=== PATIENT | male | born 1950 | race Caucasian/White ===

== ENCOUNTER 2022-03-21 11:37 | Outpatient (CLI) | payer MEDICARE, OTHER, SELFPAY | END 2022-03-21 11:38 | disposition home or self-care (01) | PROVIDERS: PCP Physician Assistant; Visit Provider Orthopaedic Surgery | DX: Z01.818 Encounter for other preprocedural examination (principal) | CPT/HCPCS: 36415; 86850; 86900; 86901 ==

== ENCOUNTER 2022-03-23 08:06 | Day surgery (SDC) | payer MEDICARE, OTHER, SELFPAY ==
[2022-03-23] VITALS (25 sets, daily range): BP systolic 74–168; BP diastolic 39–91; PULSE 53–108; RESP 12–20; TEMP 36.4–37.2; O2SAT 92–97; BMI 39.0
[2022-03-23] MEDS: ACETAMINOPHEN 500 MG TABLET 1000 MG PO ×3 (08:40→22:46)
[2022-03-23] MEDS: CELECOXIB 200 MG CAPSULE PO ×2 (08:40→20:32)
[2022-03-23] MEDS: SODIUM CHLORIDE 0.9 % (FLUSH) 10 ML SYRINGE IVF (09:00)
[2022-03-23] MEDS: LACTATED RINGERS 1000 ML 1,000 ML 100 ML IV (09:00)
[2022-03-23] MEDS: MIDAZOLAM HCL 1 MG/ML inj IVP (09:22)
[2022-03-23] MEDS: fentaNYL 100 MCG/2 ML inj IVP (09:22)
--- NOTE | 2022-03-23 09:27 | W.PM.NB ---
Nerve Block Nerve Block Time Seen by Provider: 09:24 Date Seen: 03/23/22 Type of block requested by surgeon for post-operative analgesia: OFELIA/LFCN Side: right Time out performed: Yes Verification of patient name: Yes Verification of date of : Yes Site marking: site marked Name of person performing procedure: Quinn Continuous monitoring Was continuous monitoring of O2 sat, B/P, cardiac rehab nurse, recorded every 15 minutes?: Yes Procedure Checklist: sterile prep, needles and gloves Ultrasound guided. Images saved: Yes Medications given in 5ml increments after negative aspiration: Ropivicaine %: 0.5 mL: 30 Needle gauge: 20 Decadron (mg): 10 Precedex (mcg): 25 Patient tolerated procedure well: Yes Additional comments: Needle noted below psoas tendon needle noted adjacent to LFCN Block Charges Block Charge (with Pro Fee): Other Periph Nerve Block Use of Ultrasound Machine for Block: Yes- US Guidance/pain block
--- NOTE | 2022-03-23 09:33 | SUR.PREOP ---
TIME?OUT:?20 PT/RN/MDA?VERIFICATION?OF?SURGICAL?SITE,?PROCEDURE,?AND?CONSENT OBTAINED?PRIOR?TO?INVASIVE?PROCEDURE.
[2022-03-23] MEDS: CEFAZOLIN 2 GM INJ IVP (09:35)
--- NOTE | 2022-03-23 09:41 | CRLHL7_ITS ---
For Patients: As a result of the Cures Act, medical imaging exams and procedure reports are released immediately into your electronic medical record. You may view this report before your referring provider. If you have questions, please contact your health care provider. Indication: Hip replacement surgery Technique: AP hip fluoroscopic image. Fluoroscopy time 75.5 seconds. Findings/Impression: Hardware from a right total hip arthroplasty is in satisfactory position. Dictated by James Osorio MD @ 03/23/2022 11:48:07 AM (Electronically Signed)
[2022-03-23] MEDS: TRANEXAMIC ACID 100 MG/ML INJ 1000 MG IV (09:51)
--- NOTE | 2022-03-23 11:43 | CRLHL7_ITS ---
For Patients: As a result of the Cures Act, medical imaging exams and procedure reports are released immediately into your electronic medical record. You may view this report before your referring provider. If you have questions, please contact your health care provider. Indication: POST OP Technique: AP hip centered pelvis and lateral view right hip Findings/Impression: Hardware from a right total hip arthroplasty is in satisfactory position. Bone alignment is normal. No sign of acute fracture. Postop changes are within normal limits. Dictated by James Osorio MD @ 03/23/2022 3:20:10 PM (Electronically Signed)
--- NOTE | 2022-03-23 11:47 | PM.ORPRC ---
Procedure Note Date of procedure: 03/23/22 Procedure: SURGEON: Saleem Quinones MD SEAT INSTALLER: Geeta Tam PA-C , SIMON Fischer PREOPERATIVE DIAGNOSIS: Right hip osteoarthritis POSTOPERATIVE DIAGNOSIS: Right hip osteoarthritis NAME OF OPERATION: Right total hip arthroplasty IMPLANTS: 1. [employer] [place] # 56 sector ingrowth cup 2. 36 x 56 +4 neutral polyethylene 3. Actis # 5 high offset collared ingrowth stem 4. 36 + 1.5 ceramic femoral head ANESTHESIA: General ESTIMATED BLOOD LOSS: 300 cc COMPLICATIONS: None SPECIMENS: None DRAINS: None PREOPERATIVE ANTIBIOTICS: Ancef 2 grams INDICATIONS: The patient is a 71-year-old with a longstanding history of severe, unrelenting right hip pain secondary to end-stage right hip osteoarthritis. Despite appropriate nonoperative management, including activity modification, use of an assist device, anti-inflammatories, [id number] pain medication, physical therapy and injections, they continue to have pain and disability. Operative intervention was offered. The risks, benefits and expected outcomes were discussed in detail. These included but were not limited to: Infection, bleeding, injury to blood vessel or nerve, venous thromboembolism. All questions were answered to their satisfaction. Use of an sales operations assistant was necessary throughout the case for patient positioning and safety, soft tissue retraction and closure. PROCEDURE: The patient was placed supine on the [place] table. General anesthesia was administered. The sales operations assistant made sure the patient was properly positioned. The right hip was prepped and draped in the usual sterile fashion. The image intensifier was brought in for a perfect AP pelvis and a perfect double tear drop AP view of each hip which were used for intraoperative templating with our fluoroscopic guide. An oblique incision was made 3 cm distal and 3 cm lateral to the anterior superior iliac spine. The sales operations assistant retracted the soft tissues to protect them. Subcutaneous dissection was taken with electrocautery to the superficial fascia. The fascia was divided in line with the incision. Blunt dissection was carried medially to the tensor fascia jey and sartorius interval. Deep dissection was carried with electrocautery. The circumflex vessels were cauterized and divided. The capsule was exposed and then divided in a T-fashion, tagged with #1 Ethibond sutures. Retractors were placed in the joint, held by the sales operations assistant. The corkscrew was placed in the femoral head. The neck cut was made in the subcapital region. We made a second neck cut more distal. The napkin ring of bone was removed. The femoral head was removed intact. Acetabular retractors were placed, held by the sales operations assistant. The labrum was sharply debrided. The capsule was released. The 43 mm reamer was used to the true medial wall. We then enlarged in 2 mm increments using the image intensifier for our reamer placement. We impacted the cup which had excellent purchase. We placed the hole eliminator and the polyethylene. Attention was then turned to the proximal femur. The limb was placed in 140 degrees of external rotation, maximum extension and adduction. A significant amount of time was spent releasing the capsule to allow us to deliver the femur into the wound and complete the femoral side safely. Retractors were held by the sales operations assistant throughout the femoral preparation. The wash box operator and canal finder were used. Broaches were used to a stable size. The calcar reamer was used. Trial components were placed. The hip was reduced and was found to be stable with appropriate soft tissue tension. Length and offset had been nicely restored using the image intensifier and our fluoroscopic guide. Trial components were removed. The stem was impacted. We placed the femoral head. Again, the hip was reduced and was found to be stable with appropriate soft tissue tension. Length and offset had been nicely restored. The sales operations assistant did a three minute dilute Betadine solution soak. The sales operations assistant irrigated the wound with 3 liters of normal saline via pulse lavage. The sales operations assistant repaired the anterior capsule with a #1 Vicryl and our previously placed Ethibond sutures. The sales operations assistant closed the fascia over the tensor fascia jey with a #1 PDO Stratafix, subcutaneous tissues with 2-0 Vicryl, skin with a running 3-0 Stratafix and glue. A dry dressing was applied by the sales operations assistant. Sponge and needle counts were correct x 2. The patient tolerated the procedure well; there were no apparent complications. They were awakened and extubated in the operating room, sent to the Post-Anesthesia Care Unit in satisfactory condition. PLAN: 1. The patient will be mobilized with physical therapy, weight-bearing as tolerates 2. Xarelto x 5 days then aspirin x 30 days will be used for DVT prophylaxis 3. The patient will be discharged once medically appropriate
--- NOTE | 2022-03-23 12:09 | W.ANESCHARGE ---
Anesthesia Charges Start Date/Time Anesthesia Start Date: 03/23/22 Anesthesia Start Time: 09:35 Stop Date/Time Anesthesia Stop Date: 03/23/22 Anesthesia Stop Time: 12:10 Summary Emergency: No
[2022-03-23] MEDS: EPINEPHrine 1 MG/ML inj 0.5 MG IRRIGATION (12:30)
--- NOTE | 2022-03-23 12:32 | W.ANESCHARGE ---
Anesthesia Charges Start Date/Time Anesthesia Start Date: 03/23/22 Anesthesia Start Time: 09:35 Stop Date/Time Anesthesia Stop Date: 03/23/22 Anesthesia Stop Time: 12:10 Summary Emergency: No
[2022-03-23] MEDS: fentaNYL 100 MCG/2 ML inj 50 MCG IVP (12:40)
[2022-03-23] MEDS: MEPERIDINE 25 MG/ML INJ 12.5 MG IVP (12:44)
[2022-03-23] MEDS: HYDROmorphone 0.5 mg/0.5 ml inj IVP (13:16)
[2022-03-23] MEDS: LACTATED RINGERS 1000 ML 1,000 ML 75 ML IV (13:30)
[2022-03-23] MEDS: 0.9 % SODIUM CHLORIDE 500 ML IV (13:43)
[2022-03-23] MEDS: ONDANSETRON 2 MG/ML inj 4 MG IVP (15:39)
[2022-03-23] MEDS: CEFAZOLIN 2 GM in 0.9 % SODIUM CHLORIDE Mini-bag 100 ML IVPB (16:20)
--- NOTE | 2022-03-23 16:22 | PC.NURSE ---
Pt returned to floor with B/P of 88/59, repostioned, changed cuff, no positive change with B/P. Left message for Dr. Vines, started 500cc bolus. Updated Dr. Bradley. B/P slowly rising. Pt has been asymptomatic through entire event. Tolerating ice chips. Pt lives home alone with cat. He did not have a plan for DC. Friend/neighbor, Estrella, informed clinical writer that a friend and her in [place] offered to take him in for rehab. Friend, Estrella and clinical writer encoraged pt to take friends up on stay for his safety during post-op rehab. Pt has agreed to return to [facility] with friends at time of DC. Pt is needing information on PT/OT while with friends and then once he is able to return home.
[2022-03-23] MEDS: HYDROmorphone 2 MG TABLET PO (20:31)
[2022-03-23] MEDS: SENNOSIDES 1 TAB TABLET 2 TAB PO (20:31)
--- NOTE | 2022-03-23 22:38 | PC.NURSE ---
Shift note: The pt has been pleasant and cooperative. The right hip dressing has been C/D/I. The pt was denying pain at rest; C/O 6/10 pain with activity; PRN pain medication was give with some relief. Ice pack has been applied to the site. BP has been improved gradually to 125/74. Denied chest pain and short of breath. The pt was up to the chair this evening; and ambulated to the BR with 1-assist a gait belt and walker. He ate 100% of his dinner; tolerated without any nausea.
[2022-03-24] MEDS: CEFAZOLIN 2 GM in 0.9 % SODIUM CHLORIDE Mini-bag 100 ML IVPB ×2 (00:02→08:18)
[2022-03-24] MEDS: HYDROmorphone 2 MG TABLET PO ×3 (00:06→12:39)
--- NOTE | 2022-03-24 00:25 | PM.IMCN1 ---
Date of Consult Consult date: 03/24/22 Requesting Physician: Orthopedics Primary Care Provider: Ari Garcias PA-C Consult Narrative Narrative: HOSPITALIST CONSULT Hospital Day #1 Post Op Day # 0 Status post right total hip arthroplasty The hospital medicine team was asked by Orthopedic team to manage the patient's PE, hypertension I updated the [facility] histories and Medications and Allergies in the Expanse tabs REVIEW OF SYSTEMS: 12-point ROS completed with patient and negative unless otherwise stated in HPI or below. PHYSICAL EXAM: CODE STATUS: FULL CODE CONSTITUTIONAL: Conversive, good historian. A/O. Knows setting and context. VITAL SIGNS: see record. HEENT: Normocephalic, atraumatic. PERRL, EOMI, conjunctivae pink, no scleral icterus. Ears and nose externally normal. Pharynx normal. NECK: No JVD. No carotid bruit, no thyromegaly, no adenopathy. CHEST: Clear to auscultation bilaterally HEART: No harsh murmurs. S1/S2. ABDOMEN: Flat, soft, nontender. Normal bowel sounds. Moderately obese. EXTREMITIES: No edema. MUSCULOSKELETAL: Intact surgical dressing. Neurovascularly intact right lower extremity. NEURO: Cranial nerves intact. Normal affect. No gross deficits. Speech intelligible. SKIN: No rashes, petechiae, concerning changes PSYCHIATRIC: Euthymic. INVESTIGATIONS: EMR Reviewed DISPOSITION: MedSurg Recovery; Discharge tomorrow DVT: Consider Lovenox bridge until his warfarin is therapeutic. 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 Previously for 6 months many years ago. No children. Lives alone. Highest level of school completed/degree received: some college, no degree Smoking Status: Never smoker Do you use any of these nicotine containing products: None How often do you have a drink containing alcohol: monthly or less Alcohol type: wine How many standard drinks containing alcohol do you have on a typical day: 1 or 2 How often do you have six or more drinks on one occasion: Less than monthly AUDIT-C Alcohol total score: 2 Non-prescribed substance use: denies use Caffeine: Yes (coffee, once a week) service: No Meds Home Medications and Allergies Home Medications Medication Instructions Recorded Confirmed Type warfarin 7.5 mg tablet 3.75 - 7.5 mg PO DAILY 02/04/22 03/23/22 History atorvastatin 20 mg tablet 20 mg PO DAILY 03/18/22 03/23/22 History cholecalciferol (vitamin D3) 25 25 mcg PO DAILY 03/18/22 03/23/22 History mcg (1,000 unit) capsule docusate sodium 100 mg capsule 100 mg PO DAILY 03/18/22 03/23/22 History (Colace) lisinopril 20 1 tab PO DAILY 03/18/22 03/23/22 History mg-hydrochlorothiazide 25 mg tablet multivitamin (Daily Multi-Vitamin 1 tab PO DAILY 03/18/22 03/23/22 History tablet) Allergies Allergy/AdvReac Type Severity Reaction Status Date / Time Morphine Allergy Severe Vomiting Uncoded 02/06/22 09:08 Oxycodone Allergy Severe Vomiting Uncoded 02/06/22 09:08 Exam Const: Vital Signs, click to edit/add: Vital Signs - 24 hr 03/23/22 08:46 03/23/22 09:23 03/23/22 09:30 Temperature 98.7 F Pulse Rate 108 H 95 53 L Pulse Rate [Left P ulse Oximeter] Respiratory Rate 20 20 16 Blood Pressure 124/66 114/75 97/62 Blood Pressure [Ri ght Arm] Pulse Oximetry 95 97 95 Oxygen Delivery Me thod Room Air Nasal Cannula Nasal Cannula Oxygen Flow Rate 2 2 03/23/22 09:32 03/23/22 12:05 03/23/22 12:10 Temperature 97.7 F Pulse Rate 85 76 70 Pulse Rate [Left P ulse Oximeter] Respiratory Rate 18 16 16 Blood Pressure 109/66 105/62 96/66 Blood Pressure [Ri ght Arm] Pulse Oximetry 96 95 92 Oxygen Delivery Me thod Nasal Cannula Room Air Room Air Oxygen Flow Rate 2 2 03/23/22 12:15 03/23/22 12:20 03/23/22 12:35 Temperature Pulse Rate 58 L 54 L 105 H Pulse Rate [Left P ulse Oximeter] Respiratory Rate 12 12 12 Blood Pressure 74/45 L 84/48 L 168/91 H Blood Pressure [Ri ght Arm] Pulse Oximetry 95 92 94 Oxygen Delivery Me thod Room Air Room Air Room Air Oxygen Flow Rate 2 2 2 03/23/22 12:30 03/23/22 12:40 03/23/22 12:45 Temperature Pulse Rate 60 97 95 Pulse Rate [Left P ulse Oximeter] Respiratory Rate 12 12 16 Blood Pressure 74/48 L 112/59 L 134/71 Blood Pressure [Ri ght Arm] Pulse Oximetry 92 92 92 Oxygen Delivery Me thod Room Air Room Air Room Air Oxygen Flow Rate 2 2 2 03/23/22 12:50 03/23/22 13:10 03/23/22 13:15 Temperature 97.5 F L 97.5 F L Pulse Rate 91 93 Pulse Rate [Left P ulse Oximeter] 97 Respiratory Rate 14 18 18 Blood Pressure 108/59 L Blood Pressure [Ri ght Arm] 88/59 L 84/44 L Pulse Oximetry 92 93 Oxygen Delivery Me thod Room Air Room Air Room Air Oxygen Flow Rate 2 03/23/22 13:30 03/23/22 13:45 03/23/22 14:00 Temperature 97.5 F L 98.1 F Pulse Rate Pulse Rate [Left P ulse Oximeter] 85 85 87 Respiratory Rate 18 18 18 Blood Pressure Blood Pressure [Ri ght Arm] 79/39 L 87/52 L 77/57 L Pulse Oximetry 93 93 93 Oxygen Delivery Me thod Room Air Room Air Room Air Oxygen Flow Rate 03/23/22 14:15 03/23/22 14:30 03/23/22 15:00 Temperature 98.2 F 98.6 F Pulse Rate Pulse Rate [Left P ulse Oximeter] 88 86 80 Respiratory Rate 18 18 18 Blood Pressure Blood Pressure [Ri ght Arm] 82/62 L 90/61 94/62 Pulse Oximetry 94 93 94 Oxygen Delivery Me thod Room Air Room Air Room Air Oxygen Flow Rate 03/23/22 16:00 03/23/22 17:00 10/24/22 18:00 Temperature 98.4 F Pulse Rate Pulse Rate [Left P ulse Oximeter] 84 93 96 Respiratory Rate 18 18 18 Blood Pressure Blood Pressure [Ri ght Arm] 106/67 107/72 109/72 Pulse Oximetry 96 96 94 Oxygen Delivery Me thod Room Air Room Air Room Air Oxygen Flow Rate 2 2 Assessment and Plan Assessment and plan (1) History of total hip arthroplasty: Status: Acute (2) History of pulmonary embolism: Status: Acute (3) Hypertension: Status: Acute
[2022-03-24 03:00] VITALS: BP 108/61; PULSE 89; RESP 18; TEMP 37.2; O2SAT 95
--- NOTE | 2022-03-24 06:16 | PC.NURSE ---
Shift note: Surgical dressing is C/D/I, surrounding skin is intact and pink. Pedal pulses present, moving all extremities strong. Pt rates pain 3/10, RN treated per eMAR with relief and pt was able to rest overnight. He tolerates PO food and fluids with no c/o nausea. Ambulates with assist of 1 belt and walker.
[2022-03-24 07:00] VITALS: BP 127/63; PULSE 91; RESP 16; TEMP 36.6; O2SAT 100
[2022-03-24 07:34] LABS: Basophils Percent Auto 0.1 % (0.0-3.0); Hematocrit 34.7 % (37.0-53.0); Hemoglobin* 11.5 gm/dL (13.5-17.5); Immature Granulocytes Abs Auto 0.01 K/uL (0.00-0.30); Lymphocytes Percent Auto 6.7 % (20-44); Mean Corpuscular HGB Conc 33 gm/dL (32-36); Mean Corpuscular Hemoglobin 30 pg (26-34); Mean Corpuscular Volume 91 fL (80-100); Monocytes Percent Auto 10.8 % (0.0-11.0); Neutrophils Percent Auto 82.3 % (42.0-72.0); Platelet Count* 248 K/uL (140-440); Red Blood Count 3.81 m/uL (4.30-5.90); White Blood Count* 12.36 K/uL (4.50-11.00)
[2022-03-24 07:55] LABS: Sodium* 135 mmol/L (135-149)
[2022-03-24 07:56] LABS: Potassium* 4.1 mmol/L (3.6-5.1)
[2022-03-24 07:58] LABS: Est. Creatinine Clearance* 65.18; Estimated Glomerular Filt Rate 81 ml/min
[2022-03-24 07:59] LABS: Blood Urea Nitrogen* 30 mg/dL (7-30)
[2022-03-24 08:09] LABS: Slide Review Reflex No
[2022-03-24 08:14] LABS: INR 1.19 (0.91-1.10); Prothrombin Time 15.8 Seconds
[2022-03-24] MEDS: ACETAMINOPHEN 500 MG TABLET 1000 MG PO (09:29)
[2022-03-24] MEDS: SENNOSIDES 1 TAB TABLET 2 TAB PO (09:29)
[2022-03-24] MEDS: DOCUSATE SODIUM 100 MG CAPSULE PO (09:30)
[2022-03-24] MEDS: CELECOXIB 200 MG CAPSULE PO (09:30)
[2022-03-24] MEDS: ATORVASTATIN 10 MG TABLET 20 MG PO (09:30)
--- NOTE | 2022-03-24 09:57 | PM.ORPN ---
Subjective Subjective Time Seen by Provider: 09:10 Date Seen: 03/24/22 Principal diagnosis: Day 1 S/P right MC Interval history: Adriano is doing well this morning and is resting comfortably in his recliner. Prior to our conversation, I witnessed Adriano ambulating down the marie with PT; he appears to be doing well. Patient complains of diffuse, mild right hip pain, right lateral thigh numbness and trouble sleeping. Pain is well managed with current scheduled and PRN oral pain medications and ice. Denies: fever, chills, body aches, chest pain, SOB. Patient has not yet had a bowel movement and reports no flatulence yet. No acute events over night. Ortho Exam Narrative Exam Narrative: Incision/Dressing: Dressing appears clean and dry. No drainage present. Mepilex intact. Right hip appears moderately swollen but supple with no obvious erythema, fluctuance or excessive warmth. No ecchymosis or erythematous streaking. Warmth around the wound is appropriate. Ice is being utilized as needed. CMS: Intact distally with 2+ Dorsalis pedis and Posterior Tibial pulses. 5/5 motor strength dorsal and plantar flexion. Confirmed sensation distally. Intact straight leg raise. Calf: Bilateral calves are supple, with no swelling, pain, tenderness, erythema, discoloration or coolness to the touch. Constitutional: Patient is alert and oriented x3. Patient is in no acute distress and converses without labored breathing. Patient is able to make decisions and demonstrates good insight. Patient is pleasant and cooperative. Affect is full range and appropriate for the circumstances. Const Vital Signs, click to edit/add: Vital Signs - 24 hr 03/23/22 12:05 03/23/22 12:10 03/23/22 12:15 Temperature 97.7 F Pulse Rate 76 70 58 L Pulse Rate [Left Pulse Oximeter] Respiratory Rate 16 16 12 Blood Pressure 105/62 96/66 74/45 L Blood Pressure [Right Arm] Pulse Oximetry 95 92 95 Oxygen Delivery Method Room Air Room Air Room Air Oxygen Flow Rate 2 2 03/23/22 12:20 03/23/22 12:35 03/23/22 12:30 Temperature Pulse Rate 54 L 105 H 60 Pulse Rate [Left Pulse Oximeter] Respiratory Rate 12 12 12 Blood Pressure 84/48 L 168/91 H 74/48 L Blood Pressure [Right Arm] Pulse Oximetry 92 94 92 Oxygen Delivery Method Room Air Room Air Room Air Oxygen Flow Rate 2 2 2 03/23/22 12:40 03/23/22 12:45 03/23/22 12:50 Temperature Pulse Rate 97 95 91 Pulse Rate [Left Pulse Oximeter] Respiratory Rate 12 16 14 Blood Pressure 112/59 L 134/71 108/59 L Blood Pressure [Right Arm] Pulse Oximetry 92 92 92 Oxygen Delivery Method Room Air Room Air Room Air Oxygen Flow Rate 2 2 2 03/23/22 13:10 03/23/22 13:15 03/23/22 13:30 Temperature 97.5 F L 97.5 F L 97.5 F L Pulse Rate 93 Pulse Rate [Left Pulse Oximeter] 97 85 Respiratory Rate 18 18 18 Blood Pressure Blood Pressure [Right Arm] 88/59 L 84/44 L 79/39 L Pulse Oximetry 93 93 Oxygen Delivery Method Room Air Room Air Room Air Oxygen Flow Rate 03/23/22 13:45 03/23/22 14:00 03/23/22 14:15 Temperature 98.1 F Pulse Rate Pulse Rate [Left Pulse Oximeter] 85 87 88 Respiratory Rate 18 18 18 Blood Pressure Blood Pressure [Right Arm] 87/52 L 77/57 L 82/62 L Pulse Oximetry 93 93 94 Oxygen Delivery Method Room Air Room Air Room Air Oxygen Flow Rate 03/23/22 14:30 03/23/22 15:00 03/23/22 16:00 Temperature 98.2 F 98.6 F Pulse Rate Pulse Rate [Left Pulse Oximeter] 86 80 84 Respiratory Rate 18 18 18 Blood Pressure Blood Pressure [Right Arm] 90/61 94/62 106/67 Pulse Oximetry 93 94 96 Oxygen Delivery Method Room Air Room Air Room Air Oxygen Flow Rate 2 03/23/22 17:00 03/23/22 18:00 03/23/22 23:00 Temperature 98.4 F 99 F Pulse Rate Pulse Rate [Left Pulse Oximeter] 93 96 99 Respiratory Rate 18 18 20 Blood Pressure Blood Pressure [Right Arm] 107/72 109/72 118/65 Pulse Oximetry 96 94 95 Oxygen Delivery Method Room Air Room Air Room Air Oxygen Flow Rate 2 03/24/22 03:00 03/24/22 07:00 Temperature 98.9 F 97.9 F Pulse Rate Pulse Rate [Left Pulse Oximeter] 89 91 Respiratory Rate 18 16 Blood Pressure Blood Pressure [Right Arm] 108/61 127/63 Pulse Oximetry 95 100 Oxygen Delivery Method Room Air Room Air Oxygen Flow Rate Documenting provider has reviewed patient's vital signs: yes Assessment and Plan Assessment and plan (1) History of total hip arthroplasty: Status: Acute Assessment and Plan: - Complete 23 hour perioperative antibiotics. - PT/OT consults for education and assistance. Outpatient PT at [facility] in [place]. - Social consult for discharge planning. Anticipate patient will discharge to his friend's house in [place] later this afternoon/evening. Patient has a 3-level home. - Weight bear as tolerated. - DVT prophylaxis: patient will resume his warfarin today and bridge with Lovenox. Also bilateral knee high Skip stockings (x 1 month), frequent ambulation and ankle pumps when sedentary. Patient has an appointment Wednesday (03/30) to check his INR at [facility] in [place]. - Return to clinic in 1 week for a wound check. Mepilex dressing will be removed at this appointment. Remove sooner if dressing becomes saturated. - Return to clinic in [address] Quinones. - Prescribed analgesics as needed. Patient is content with current narcotic medications. Minimize narcotic pain medication use; wean off and discontinue as soon as possible. Patient states strong preference to not receive any codeine - he is allergic. - Phone Orthopedics with any questions or concerns. (2) History of pulmonary embolism: Status: Acute (3) Hypertension: Status: Acute
--- NOTE | 2022-03-24 12:11 | PC.SOCIAL ---
Addendum entered by VERONICA Calvin 03/24/22 12:16: Social work actuarial intern note reviewed. VERONICA Patiño Original Note: Discharge: Social Work met with pt. about his discharge plan. Pt.'s brother will pick him up from the hospital, and he will go to a friend's home in [place] who will assist as needed. Pt. states location has stairs, but is not concerned as he was able to do stairs today. Pt. is aware that he can call hospital with any future concerns.
--- NOTE | 2022-03-24 13:52 | PC.NURSE ---
PATIENT DISCHARGED TO A FRIENDS HOUSE, PATIENT VERBALIZED UNDERSTANDING OF DISCHARGE INFORMATION AND HAD NO FURTHER QUESTIONS AT THIS TIME, DRESSING TO RIGHT HIP CDI, ACTIVE ICE TO SITE, TOLERATING REGULAR DIET, UP SBA WITH WALKER AND BELT, RATING PAIN IN RIGHT HIP 2-08/07 BEING MANAGED WITH PRN DILAUDID AND SCHEDULED TYLENOL, PATIENT LEFT AROUND 1320.
--- NOTE | 2022-03-30 12:13 | PM.DS1 ---
DS: Providers Provider Time Seen by Provider: 08:00 Date Seen: 03/24/22 Date of admission: 03/23/2022 Primary care physician: Ari Garcias PA-C Admitting Clinician: Saleem Quinones MD Consults: 03/23/22 13:10 Consult to Occupational Therapy [CONS] Routine Comment: Reason(s) for OT Consult:: ADLs Prior to Discharge Any Restrictions?:: No Restrictions Comment: Consult to Occupational Therapy [CONS] Routine Comment: Reason(s) for OT Consult:: Evaluate and Treat Any Restrictions?:: No Restrictions Consult to Physical Therapy [CONS] Routine Comment: Ambulate in the marie today Reason(s) for PT Consult:: Evaluate and Treat Any Restrictions?:: No Restrictions Comment: Nursing Activity Consult to Physical Therapy [CONS] Routine Comment: Ambulate in the marie today Reason(s) for PT Consult:: THR TX Protocol POD#0 Any Restrictions?:: No Restrictions Comment: Nursing Activity: See nursing activity order Consult to Physician [CONS] Routine Comment: Consulting Provider: Hospitalists Has provider been notified: No Consult to Application Designer [CONS] Routine Comment: Reason for Consult:: Discharge Planning Needs Consult to Application Designer [CONS] Routine Comment: Reason for Consult:: Discharge Planning Needs Attending Physician on discharge: Saleem Quinones MD Date of Discharge: 03/24/22 DS: Diagnosis Discharge Diagnosis (1) Osteoarthritis of right hip: Status: Acute Problem details: Status post total hip arthroplasty in February of 2022 (2) History of total hip arthroplasty: Status: Acute (3) History of pulmonary embolism: Status: Acute (4) Hypertension: Status: Acute (5) Obesity (BMI 30-39.9): Status: Acute Problem details: BMI 38.6 (6) Depression: Status: Acute DS: Summary Hospital Course Hospital Course: 71-year-old man with end-stage right Medley arthrosis undergoes successful right total hip arthroplasty without complications. 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 At time of discharge will be receiving venous thromboembolism prophylaxis doses of enoxaparin and restarting his warfarin and following up on his warfarin dosing with primary care physician. Status at Discharge Functional status at discharge: uses cane/walker Overall status at discharge: patient is progressing back to baseline Time Spent with Patient Time attestation: Total time spent providing and/or coordinating discharge services: Time spent: Less than 30 minutes Exam Narrative: Exam Narrative: CONSTITUTIONAL: Conversive, good historian. A/O. Knows setting and context. VITAL SIGNS: see record.? HEENT: Normocephalic, atraumatic. PERRL, EOMI, conjunctivae pink, no scleral icterus. Ears and nose externally normal. Pharynx normal. NECK: No JVD. No carotid bruit, no thyromegaly, no adenopathy. CHEST:? Clear to auscultation bilaterally HEART: No harsh murmurs. S1/S2. ABDOMEN: Flat, soft, nontender. Normal bowel sounds. Moderately obese. EXTREMITIES:? No edema. MUSCULOSKELETAL:? Intact surgical dressing.? Neurovascularly intact right lower extremity. NEURO: Cranial nerves intact.? Normal affect. No gross deficits. Speech intelligible. SKIN:? No rashes, petechiae, concerning changes PSYCHIATRIC: Euthymic. Const: Documenting provider has reviewed patient's vital signs: yes Discharge Plan Discharge Disposition: Home, Self-Care Discharging Surgeon: Saleem Quinones Follow-Up Appointment: 1 week Prescriptions: New sennosides [Senna Lax] 8.6 mg Tablet 2 tab PO BID PRNQty: 100 0RF acetaminophen 500 mg Tablet 500 - 1,000 mg PO Q6H PRNQty: 100 0RF Xarelto 10 mg tablet 10 mg PO DAILY Qty: 7 2RF Rx Instructions: for 7 days hydromorphone 2 mg Tablet 2 mg PO Q4-6H PRNQty: 30 0RF Rx Instructions: Minimize use. Wean off and discontinue as soon as possible. Continued warfarin 7.5 mg tablet 3.75 - 7.5 mg PO DAILY Rx Instructions: saturdays takes half tablet, all other days 7.5mg atorvastatin 20 mg tablet 20 mg PO DAILY lisinopril-hydrochlorothiazide 20-25 mg tablet 1 tab PO DAILY multivitamin [Daily Multi-Vitamin] Tablet 1 tab PO DAILY docusate sodium [Colace] 100 mg capsule 100 mg PO DAILY cholecalciferol (vitamin D3) 25 mcg (1,000 unit) capsule 25 mcg PO DAILY Activity Level: Activity as Tolerated and No strenuous activity Activity Detail: Keep dressing on for 1 week. Dressing is waterproof. May shower. Surgical glue covers the wound. Attend outpatient physical therapy if scheduled. Ice and elevate operative extremity without restriction. Wear compression stockings for 1 month post surgery. May remove for 1 hour per day. Ambulate every hour throughout the day. If you drive, Do not drive while taking narcotic pain medication. Do not drink alcohol while taking narcotic pain medication. May drive when safe to do so and have full function of the extremities, this may take 6 weeks or more. Notify Orthopedics with any questions or concerns. ([phone]) Discharge Diet: Regular Patient Instructions: Acetaminophen (By mouth), Hydromorphone (By mouth), Rivaroxaban (By mouth) (Xarelto, Xarelto Starter Pack), Senna (By mouth), Total Hip Replacement (DC) Additional Instructions: Outpatient PT[facility]OT at [facility] in [facility] and treat right MC. Forms: Work/Release Restrictions Follow-up: Zahra Weiner PA-C [Physician Dry Wall Installations Mechanic] - 04/01/22 9:00 am ([facility]. [phone]) Ari Garcias PA-C [Primary Care Provider] - Discharge Orders: Discharge Order (Routine); Ordered 03/24/22 Ordered By: Joseph Robledo
== END 2022-03-24 13:20 | disposition home or self-care (01) ==
LOC: OR 08:07 → MEDSURG 08:11
PROVIDERS: PCP Physician Assistant; Visit Provider Orthopaedic Surgery
PROC: (CPT 27130; principal; 2022-03-23 10:15)
DX: M16.11 Unilateral primary osteoarthritis, right hip (principal); I10 Essential (primary) hypertension; Z86.711 Personal history of pulmonary embolism; Z79.01 Long term (current) use of anticoagulants; F32.A Depression, unspecified; E78.5 Hyperlipidemia, unspecified; Z85.46 Personal history of malignant neoplasm of prostate; E66.9 Obesity, unspecified; Z68.38 Body mass index [BMI] 38.0-38.9, adult
CPT/HCPCS: 27130; 01214; 36415; 64450; 73501; 76000; 76942; 82565; 84132; 84295; 84520; 85025; 85610; 97110; 97116; 97161; 97165; 97530; A9270; C1776; J0171; J0690; J1100; J1170; J2175; J2250; J2405; J2795; J3010; J7120

== ENCOUNTER 2023-04-06 08:28 | Day surgery (SDC) | payer MEDICARE, OTHER, SELFPAY ==
[2023-04-06] VITALS (23 sets, daily range): BP systolic 100–148; BP diastolic 62–96; PULSE 69–92; RESP 12–18; TEMP 35.8–36.6; O2SAT 93–97; BMI 41.3
[2023-04-06] MEDS: ACETAMINOPHEN 500 MG TABLET 1000 MG PO ×3 (09:45→21:49)
[2023-04-06] MEDS: CELECOXIB 200 MG CAPSULE PO (09:45)
[2023-04-06] MEDS: LACTATED RINGERS 1000 ML 1,000 ML 100 ML IV ×2 (09:55→11:25)
[2023-04-06 10:24] LABS: Prothrombin Time 14.9 Seconds
[2023-04-06] MEDS: fentaNYL 100 MCG/2 ML inj IVP (10:40)
[2023-04-06] MEDS: MIDAZOLAM HCL 1 MG/ML inj IVP (10:40)
--- NOTE | 2023-04-06 10:47 | SUR.PREOP ---
TIME?OUT:?1035 PT/RN/MDA?VERIFICATION?OF?SURGICAL?SITE,?PROCEDURE,?AND?CONSENT OBTAINED?PRIOR?TO?INVASIVE?PROCEDURE.
[2023-04-06] MEDS: CEFAZOLIN 2 GM INJ IVP (11:00)
[2023-04-06] MEDS: TRANEXAMIC ACID 100 MG/ML INJ 1000 MG IV (11:03)
--- NOTE | 2023-04-06 11:20 | W.PM.NB ---
Nerve Block Nerve Block Time Seen by Provider: 10:30 Date Seen: 04/06/23 Type of block requested by surgeon for post-operative analgesia: adductor canal Side: left Time out performed: Yes Verification of patient name: Yes Verification of date of : Yes Site marking: site marked Name of person performing procedure: hallie mays Continuous monitoring Was continuous monitoring of O2 sat, B/P, cardiac catheterization technician, recorded every 15 minutes?: Yes Procedure Checklist: sterile prep, needles and gloves Ultrasound guided. Images saved: Yes Medications given in 5ml increments after negative aspiration: Marcaine %: 0.5 mL: 20 Needle gauge: 21 Decadron (mg): 10 Precedex (mcg): 20 Patient tolerated procedure well: Yes Block Charges Block Charge (with Pro Fee): Femoral Nerve Use of Ultrasound Machine for Block: Yes- US Guidance/pain block
--- NOTE | 2023-04-06 11:21 | P.NB_ITS ---
Nerve Block Nerve Block Time Seen by Provider: 10:30 Date Seen: 04/06/23 Type of block requested by surgeon for post-operative analgesia: geniculars Side: left Time out performed: Yes Verification of patient name: Yes Verification of date of : Yes Site marking: site marked Name of person performing procedure: Wade Cain Continuous monitoring Was continuous monitoring of O2 sat, B/P, air sampling and monitoring, recorded every 15 minutes?: Yes Procedure Checklist: sterile prep, needles and gloves Ultrasound guided. Images saved: Yes Medications given in 5ml increments after negative aspiration: Marcaine %: 0.5 mL: 10 Needle gauge: 25 Patient tolerated procedure well: Yes Block Charges Block Charge (with Pro Fee): Genicular Nerve Block Use of Ultrasound Machine for Block: No
--- NOTE | 2023-04-06 12:54 | CRLHL7_ITS ---
For Patients: As a result of the Cures Act, medical imaging exams and procedure reports are released immediately into your electronic medical record. You may view this report before your referring provider. If you have questions, please contact your health care provider. Indication: Postop TKA Technique: Two views left knee Findings/Impression: Hardware from a left total knee arthroplasty is in satisfactory position. Bone alignment is normal. No sign of acute fracture. Postop changes are within normal limits. Dictated by James Osorio MD @ 04/07/2023 9:16:30 AM (Electronically Signed)
--- NOTE | 2023-04-06 13:07 | P.ORPRC_ITS ---
Procedure Note Date of procedure: 04/06/23 Procedure: PREOPERATIVE DIAGNOSIS: Left knee osteoarthritis POSTOPERATIVE DIAGNOSIS: Left knee osteoarthritis NAME OF OPERATION: Left total knee arthroplasty SURGEON: Saleem Quinones MD IGNITION SPECIALIST: Lisa Quinonez PA-C ANESTHESIA: Spinal ESTIMATED BLOOD LOSS: 0 mL COMPLICATIONS: None SPECIMENS: None DRAINS: None PREOPERATIVE ANTIBIOTICS: Ancef 3 grams, antibiotic impregnated cement IMPLANTS: 1. J&J Attune #6 posterior stabilized femur, 14 mm x 50 mm cemented stem 2. # 7 fixed-bearing tibia, 14 mm x 50 mm cemented stem 3. #6 posterior stabilized, 8 mm fixed-bearing polyethylene 4. 41 patella INDICATIONS: The patient is a 72-year-old with a longstanding history of severe, unrelenting left knee pain secondary to end-stage (grade IV) left knee osteoarthritis. Despite appropriate nonoperative management, including activity modification, anti-inflammatories, [id number] pain medication, bracing, physical therapy, and injections they continue to have pain and disability. Operative intervention was offered. The risks, benefits and expected outcomes were discussed in detail. These included but were not limited to: Infection, bleeding, injury to blood vessel or nerve, venous thromboembolism. All questions were answered to their satisfaction. Use of an nurse practitioner physician assistant was necessary throughout the case for patient positioning and safety, soft tissue retraction, and closure. A modifier 22 should be added to this case. Patient's weight of 123 kg with a BMI of 41.4 kg/meter squared and limited flexion made exposure quite difficult. This more than doubled the time typically required to complete the case. PROCEDURE: Spinal anesthesia was administered. The patient was placed supine on the operating table. The nurse practitioner physician assistant made sure the patient was positioned appropriately. The lower extremity was prepped and draped in the usual sterile fashion. The limb was exsanguinated with the Steve bandage. The pneumatic tourniquet was inflated to 300 mmHg. A standard anterior incision was made with the knee in flexion. Subcutaneous dissection was sharply taken through fascial layer #1. Full-thickness medial and lateral flaps were elevated. The nurse practitioner physician assistant retracted the soft tissues and protected them throughout the case. A standard medial parapatellar approach was made. The patella was everted. The infrapatellar fat pad was resected. The menisci and cruciate ligaments were sharply d?brided. Marginal osteophytes were d?brided with the rongeur. The drill was used to penetrate the femoral canal. The canal was aspirated and irrigated with pulse lavage. The intramedullary femoral guide was placed for a 5-degree valgus cut, removing 12 mm off the distal femur. The saw was used to make the cut. Whitesides line and the trans epicondylar axis were marked. The femoral sizing guide was pinned onto the distal femur. Three degrees of external rotation nicely parallels the transepicondylar axis. Pins were placed for posterior referencing. The four-in-one cutting guide was pinned onto the distal femur. The anterior, posterior, and chamfer cuts were made. The nurse practitioner physician assistant protected the collateral ligaments. The revision CRS trial was placed. The box cuts were made. The drill x2 for the stem was used. The stemmed, boxed trial was placed and was an excellent fit. Attention was then turned to the proximal tibia. The extramedullary tibial guide was placed for a neutral varus/valgus cut with 5 degrees of posterior slope, removing 2 mm based off the medial tibial surface. The nurse practitioner physician assistant protected the collateral ligaments and the neurovascular bundle. The saw was used to make the cut. Trial components were placed. The knee was nicely balanced in both flexion and extension. The trial components were removed. The tray was placed in appropriate rotation, parallel to our tibial cutting pins. It was pinned by the nurse practitioner physician assistant and the drill x2 was used. The stemmed tibial trial was placed. The punch was used. The tray was removed. The punch was used again. Attention was then turned to the patella. Venetie Ira patellar thickness was 26 mm. The lobster claw resection guide was used with the 9.5 mm ronnell. The saw was used to make the cut. Drill holes were made by the nurse practitioner physician assistant. The trial was placed and was an excellent fit. Cancellous surfaces were irrigated with pulse lavage and thoroughly dried by the nurse practitioner physician assistant. We cemented the tibial component, then the femoral component. We impacted the 8 mm polyethylene onto the tibial tray. The knee was brought into full extension. We then cemented the patellar component. Excessive cement was removed. The cement was allowed to harden. The knee was taken through a range of motion and was found to be nicely balanced in both flexion and extension. The patella tracks centrally. The nurse practitioner physician assistant did a three minute dilute Betadine solution soak. The nurse practitioner physician assistant irrigated the wound with 3 liters of normal saline via pulse lavage. The nurse practitioner physician assistant reapproximated the extensor mechanism with #1 Vicryl in an interrupted [id number] fashion. The nurse practitioner physician assistant then ran the extensor mechanism with a #1 PDO Stratafix. The nurse practitioner physician assistant closed the subcutaneous tissues with a 3-0 Stratafix and the skin with a running 3-0 Stratafix in a subcuticular fashion. Glue was used to seal the skin. The nurse practitioner physician assistant placed a dry dressing, NINO stocking, and Polar Care. Sponge and needle counts were correct x2. The patient tolerated the procedure well. There were no apparent complications. They were carefully transferred to the hospital bed and taken to the postanesthesia care unit in satisfactory condition. PLAN: The patient will be mobilized with physical therapy. His usual dose of Coumadin will be restarted. He will be discharged to a retirement facility, once medically appropriate.
--- NOTE | 2023-04-06 13:47 | P.ANES_ITS ---
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
--- NOTE | 2023-04-06 16:48 | PM.IMCN1 ---
Date of Consult Patient: Other ( [place]) Consult date: 04/06/23 Requesting Physician: Orthopedics Primary Care Provider: Ari Garcias PA-C Consult Narrative Reason for consult: postop care for history of unprovoked pulmonary embolism, HTN, HLD Narrative: Victorino Trejo is a 72 year old man undergoes an elective left total knee arthroplasty today successfully with Dr. Quinones, [facility]. Feeling and doing well. Indicates his intent to be in a transitional care setting for postoperative rehabilitation. Working with our executive secretary social welfare staff to try to establish this level of support for him. Review of Systems Status of ROS: Reports: 10 or more systems reviewed and unremarkable except as noted in History and below Narrative: Has had left knee pain for some time. No longer responding to nonsurgical intervention modalities and efforts. No recent illness. No fevers, rigors, diaphoresis. Denies cough, dysuria, urgency, frequency, hematuria. Denies diarrhea. No cellulitis or other skin concerns. Denies trauma or injury. Denies any other blood loss. Denies dyspnea at rest, paroxysmal nocturnal dyspnea, orthopnea. Denies chest heaviness, pressure, tightness, or pain. Denies abdominal pain, dyspepsia, dysphagia, odynophagia, or constipation. Acknowledges a sense of fear about being home alone postoperatively. Lives alone with a cat. Expresses desire for transitional care services upon discharge from this hospital at this time. [facility] Medical History Depression ?F32.A - Depression, unspecified (ICD-10) History of pulmonary embolism (2012) ?Z86.711 - Personal history of pulmonary embolism (ICD-10) Hypertension ?I10 - Essential (primary) hypertension (ICD-10) Prostate cancer (2001) ?C61 - Malignant neoplasm of prostate (ICD-10) Hyperlipidemia ?E78.5 - Hyperlipidemia, unspecified (ICD-10) Surgical History Status post total replacement of right hip (03/23/22) ?Z96.641 - Presence of right artificial hip joint (ICD-10) History of bladder surgery ?Z98.890 - Other specified postprocedural states (ICD-10) History of prostatectomy ?Z90.79 - Acquired absence of other genital organ(s) (ICD-10) Family History Mother Brain aneurysm Father Diabetes Prostate cancer Brother Prostate cancer ETOH abuse Sister Breast cancer ETOH abuse Social History Narrative: 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 Previously for 6 months many years ago. No children. Lives alone. What is your current living situation?: I presently have a place to live Problems where you live: no known problems Problems where you live details: 14 steps to get up stairs bedroom/bathoom , 12 steps to get into basement In the past 12 months, utilities in danger of being shut off: no In past 12 months, lack of transportation kept you from medical appts, meetings, work, or getting things needed for daily living: no In the past 12 mos, have been you worried that your food would run out before you had money to buy more?: never true In the past 12 mos, the food you bought just didn't last and you didn't have money to buy more?: never true Highest level of school completed/degree received: some college, no degree Smoking Status: Never smoker Do you use any of these nicotine containing products: None How often do you have a drink containing alcohol: monthly or less Alcohol type: wine How many standard drinks containing alcohol do you have on a typical day: 1 or 2 How often do you have six or more drinks on one occasion: Never AUDIT-C Alcohol total score: 1 Non-prescribed substance use: denies use Caffeine: Yes How often does anyone, including family, friends and others, physically hurt you: never How often does anyone, including family, friends and others, insult or talk down to you: never How often does anyone, including family, friends and others, threaten you with harm: never How often does anyone, including family, friends and others, scream or curse at you: never service: No Meds Home Medications and Allergies Home Medications Medication Instructions Recorded Confirmed Type warfarin 7.5 mg tablet 3.75 - 7.5 mg PO DAILY 02/04/22 04/06/23 History atorvastatin 20 mg tablet 20 mg PO DAILY 03/18/22 04/06/23 History docusate sodium 100 mg capsule 100 mg PO DAILY 03/18/22 04/06/23 History (Colace) lisinopril 20 1 tab PO DAILY 03/18/22 04/06/23 History mg-hydrochlorothiazide 25 mg tablet multivitamin (Daily Multi-Vitamin 1 tab PO DAILY 03/18/22 04/06/23 History tablet) fluoxetine 20 mg capsule (Prozac) 20 mg PO DAILY 04/05/23 04/06/23 History naproxen sodium 220 mg tablet 220 mg PO BID PRN 04/05/23 04/06/23 History (Aleve) Allergies Allergy/AdvReac Type Severity Reaction Status Date / Time morphine Allergy Verified 03/08/23 09:43 oxycodone Allergy Verified 03/08/23 09:43 Exam Narrative: Exam Narrative: Examine him in his hospital room. Appears comfortable and in no acute distress. Vision and hearing are adequate. Alert and oriented to self, place, time, situation. Friendly, articulate, cooperative. Obese. No icterus or conjunctival injection. Conjugate. Extraocular muscles are intact. Midline nasal septum. Dentition in fair repair. Neck is supple. Midline trachea. Neck is supple. No head neck lymphadenopathy. Lungs are clear to auscultation. No CVA tenderness. Heart tones with regular rhythm. PMI is not laterally displaced. Abdomen is obese with active bowel sounds, soft. Extremities without edema. No focal motor neurologic deficits. Const: Vital Signs, click to edit/add: Vital Signs - 24 hr 04/06/23 09:36 04/06/23 10:35 04/06/23 10:40 Temperature 97.5 F L Pulse Rate 82 82 80 Pulse Rate [Pulse Oximeter] Respiratory Rate 16 16 16 Blood Pressure 129/73 137/79 135/74 Blood Pressure [Ri ght Arm] Pulse Oximetry 96 96 96 Oxygen Delivery Me thod Room Air Nasal Cannula Nasal Cannula Oxygen Flow Rate 2 2 04/06/23 13:39 04/06/23 13:45 04/06/23 13:50 Temperature 96.9 F L Pulse Rate 72 75 71 Pulse Rate [Pulse Oximeter] Respiratory Rate 12 14 16 Blood Pressure 100/62 101/63 102/62 Blood Pressure [Ri ght Arm] Pulse Oximetry 93 94 95 Oxygen Delivery Me thod Room Air Oxygen Flow Rate 04/06/23 13:55 04/06/23 14:00 04/06/23 14:05 Temperature Pulse Rate 73 70 72 Pulse Rate [Pulse Oximeter] Respiratory Rate 14 16 14 Blood Pressure 102/64 104/63 102/66 Blood Pressure [Ri ght Arm] Pulse Oximetry 94 94 94 Oxygen Delivery Me thod Oxygen Flow Rate 04/06/23 14:10 04/06/23 14:21 04/06/23 14:30 Temperature 97.1 F L 96.8 F L 96.9 F L Pulse Rate 69 73 Pulse Rate [Pulse Oximeter] 73 Respiratory Rate 15 16 16 Blood Pressure 112/68 Blood Pressure [Ri ght Arm] 120/70 112/79 Pulse Oximetry 95 93 Oxygen Delivery Me thod Room Air Room Air Oxygen Flow Rate 04/06/23 14:45 04/06/23 15:00 04/06/23 15:15 Temperature 96.6 F L 96.8 F L 96.8 F L Pulse Rate Pulse Rate [Pulse Oximeter] 75 77 77 Respiratory Rate 16 16 16 Blood Pressure Blood Pressure [Ri ght Arm] 121/81 130/94 H 132/96 H Pulse Oximetry 96 94 94 Oxygen Delivery Me thod Room Air Room Air Room Air Oxygen Flow Rate 2 04/06/23 15:45 04/06/23 16:15 Temperature 97.6 F 96.9 F L Pulse Rate Pulse Rate [Pulse Oximeter] 78 75 Respiratory Rate 16 16 Blood Pressure Blood Pressure [Ri ght Arm] 143/89 H 144/91 H Pulse Oximetry 95 95 Oxygen Delivery Me thod Room Air Room Air Oxygen Flow Rate Documenting provider has reviewed patient's vital signs: yes Assessment and Plan Assessment and plan (1) Osteoarthritis of left knee: Status: Acute (2) Status post left knee replacement: Problem comment: - 04/06/2023, Dr. Quinones, [facility] Status: Acute (3) History of pulmonary embolism: Status: Acute (4) Hypertension: Status: Acute (5) Depression: Status: Acute (6) Obesity (BMI 30-39.9): Problem comment: BMI 38.6 Status: Acute Plan 1. Reviewed impression with patient. 2. Answered patient's questions to satisfaction. 3. Will follow with Orthopedic surgery outpatient in hospital. 4. Restart warfarin tomorrow. Daily INR while in hospital. 5. Consider bridging Anticoagulation therapy in hospital prior to transfer to [facility], such as with rivaroxaban. 6. Continue with his other medications. 7. Agree with perioperative antibiotic prophylaxis. 8. Patient agreeable with above stated plans and recommendations.
[2023-04-06] MEDS: HYDROmorphone 2 MG TABLET PO ×2 (17:12→23:25)
[2023-04-06] MEDS: LACTATED RINGERS 1000 ML 1,000 ML 75 ML IV (17:54)
--- NOTE | 2023-04-06 18:29 | PC.NURSE ---
End of Shift: Patient pleasant and cooperative. Patient vitally stable, lungs clear, BS WNL, IV running LR at 75. Patient does not report pain, but discomfort. Scheduled tylenol given and Dilaudid given once. Patient ambulated 1 assist/walker to the toilet, urinating 850. At toilet patient vasovagaled. Patient became very pale and diaphoretic, patient reported lightheadedness and dizziness. Or Scrub Tech called for assistance. Patient lowered into wheelchair and placed in bed by ceiling lift, patient BP and HR stable, see vitals. Patient recovered well and tolerating regular diet.
[2023-04-06] MEDS: SENNOSIDES 1 TAB TABLET 2 TAB PO (21:49)
--- NOTE | 2023-04-06 22:09 | PC.NURSE ---
end of shift. pt is pleasant. 0 pain in bed and 6/10 when moving leg. pt is getting po pain meds, he has hst of nausea with pain meds/. IV is patent. he is eating, drinking. and voiding. IS used by pt. dressing is C/D/I cryo cuff to the knee. teds and scds are on. he has been in bed this shift. used urinal. taking po meds.
[2023-04-07 03:00] VITALS: BP 140/79; PULSE 81; RESP 18; TEMP 36.1; O2SAT 96
[2023-04-07] MEDS: ACETAMINOPHEN 500 MG TABLET 1000 MG PO ×2 (03:29→11:13)
[2023-04-07 06:08] LABS: Basophils Percent Auto 0.1 % (0.0-3.0); Hematocrit 38.7 % (37.0-53.0); Hemoglobin* 13.1 gm/dL (13.5-17.5); Immature Granulocytes Pct Auto 0.2 %; Lymphocytes Percent Auto 4.7 % (20-44); Mean Corpuscular HGB Conc 34 gm/dL (32-36); Mean Corpuscular Hemoglobin 30 pg (26-34); Mean Corpuscular Volume 89 fL (80-100); Monocytes Percent Auto 7.1 % (0.0-11.0); Neutrophils Percent Auto 87.9 % (42.0-72.0); Platelet Count* 243 K/uL (140-440); RDW Coefficient of Variation % 11.8 % (11.5-15.5); Red Blood Count 4.33 m/uL (4.30-5.90)
[2023-04-07] MEDS: HYDROmorphone 2 MG TABLET PO ×2 (06:11→12:24)
[2023-04-07 06:15] LABS: Slide Review Reflex No
[2023-04-07 06:21] LABS: Potassium* 4.4 mmol/L (3.6-5.1); Sodium* 135 mmol/L (135-149)
[2023-04-07 06:24] LABS: Blood Urea Nitrogen* 29 mg/dL (7-30); Creatinine* 0.9 mg/dL (0.5-1.5); Est. Creatinine Clearance* 64.26; Estimated Glomerular Filt Rate 92 ml/min
[2023-04-07 06:26] LABS: Prothrombin Time 14.9 Seconds
--- NOTE | 2023-04-07 06:45 | PC.NURSE ---
End of shift report [id number]: Pleasant and cooperative with cares. Pain to left knee well managed with ice, scheduled tylenol and PRN dilaudid. Dressing clean, dry and intact. CMS intact to left knee. Left knee redness around dressing, ice removed at 0330 for 2 hours to see if redness resolved. Redness to knee receded but small ring remains around dress, charge nurse updated. Ambulates with stand by assist with walker and gait belt.
[2023-04-07 07:36] VITALS: BP 145/75; PULSE 76; RESP 14; TEMP 36.6; O2SAT 96
--- NOTE | 2023-04-07 08:14 | P.ORPN_ITS ---
Subjective Subjective Time Seen by Provider: 07:45 Date Seen: 04/07/23 Principal diagnosis: Status post left knee replacement Interval history: Adriano is comfortable in recliner this morning. He plans to discharge to senior care facility. He had 1 episode of vasovagal. He has been moving/ambulating fine since that episode. Ortho Exam Narrative Exam Narrative: Alert and oriented x3. Patient is in no acute distress. Converses without labored breathing. Hearing is grossly intact. Ambulates with a walker. Examination of left knee shows the dressing is intact. No erythema or warmth or sign of infection. Mild effusion. Mild edema about the knee. Bilateral calves are soft and nontender. CMS is intact left lower extremity. Quad strength 5/5 Const Vital Signs, click to edit/add: Vital Signs - 24 hr 04/06/23 09:36 04/06/23 10:35 04/06/23 10:40 Temperature 97.5 F L Pulse Rate 82 82 80 Pulse Rate [Pulse Oximeter] Respiratory Rate 16 16 16 Blood Pressure 129/73 137/79 135/74 Blood Pressure [Right Arm] Pulse Oximetry 96 96 96 Oxygen Delivery Method Room Air Nasal Cannula Nasal Cannula Oxygen Flow Rate 2 2 04/06/23 13:39 04/06/23 13:45 04/06/23 13:50 Temperature 96.9 F L Pulse Rate 72 75 71 Pulse Rate [Pulse Oximeter] Respiratory Rate 12 14 16 Blood Pressure 100/62 101/63 102/62 Blood Pressure [Right Arm] Pulse Oximetry 93 94 95 Oxygen Delivery Method Room Air Oxygen Flow Rate 04/06/23 13:55 04/06/23 14:00 04/06/23 14:05 Temperature Pulse Rate 73 70 72 Pulse Rate [Pulse Oximeter] Respiratory Rate 14 16 14 Blood Pressure 102/64 104/63 102/66 Blood Pressure [Right Arm] Pulse Oximetry 94 94 94 Oxygen Delivery Method Oxygen Flow Rate 04/06/23 14:10 04/06/23 14:21 04/06/23 14:30 Temperature 97.1 F L 96.8 F L 96.9 F L Pulse Rate 69 73 Pulse Rate [Pulse Oximeter] 73 Respiratory Rate 15 16 16 Blood Pressure 112/68 Blood Pressure [Right Arm] 120/70 112/79 Pulse Oximetry 95 93 Oxygen Delivery Method Room Air Room Air Oxygen Flow Rate 04/06/23 14:45 04/06/23 15:00 04/06/23 15:15 Temperature 96.6 F L 96.8 F L 96.8 F L Pulse Rate Pulse Rate [Pulse Oximeter] 75 77 77 Respiratory Rate 16 16 16 Blood Pressure Blood Pressure [Right Arm] 121/81 130/94 H 132/96 H Pulse Oximetry 96 94 94 Oxygen Delivery Method Room Air Room Air Room Air Oxygen Flow Rate 2 04/06/23 15:45 04/06/23 16:15 04/06/23 17:18 Temperature 97.6 F 96.9 F L 97.1 F L Pulse Rate Pulse Rate [Pulse Oximeter] 78 75 82 Respiratory Rate 16 16 16 Blood Pressure Blood Pressure [Right Arm] 143/89 H 144/91 H 148/90 H Pulse Oximetry 95 95 97 Oxygen Delivery Method Room Air Room Air Room Air Oxygen Flow Rate 04/06/23 17:36 04/06/23 18:15 04/06/23 20:00 Temperature 96.5 F L 97.4 F L Pulse Rate Pulse Rate [Pulse Oximeter] 78 84 90 Respiratory Rate 16 16 Blood Pressure Blood Pressure [Right Arm] 113/72 130/88 148/95 H Pulse Oximetry 96 97 Oxygen Delivery Method Room Air Room Air Oxygen Flow Rate 04/06/23 20:11 04/06/23 23:00 04/07/23 03:00 Temperature 97.8 F 96.9 F L Pulse Rate Pulse Rate [Pulse Oximeter] 90 92 81 Respiratory Rate 16 18 18 Blood Pressure Blood Pressure [Right Arm] 130/82 140/79 H Pulse Oximetry 95 96 Oxygen Delivery Method Room Air Room Air Oxygen Flow Rate 04/07/23 07:36 04/07/23 07:36 Temperature 97.8 F Pulse Rate Pulse Rate [Pulse Oximeter] 76 76 Respiratory Rate 14 14 Blood Pressure Blood Pressure [Right Arm] 145/75 H Pulse Oximetry 96 Oxygen Delivery Method Room Air Oxygen Flow Rate Assessment and Plan Assessment and plan (1) Status post left knee replacement: Problem details: - 04/06/2023, Dr. Quinones, [facility] Status: Acute Assessment and Plan: Plan for discharge is to senior care facility when he meets discharge criteria and a side is available. DVT prophylaxis includes bridging Xarelto 10 mg daily until INR is between 2 and 3, daily warfarin, Skip stockings x1 month may remove for 1 hr per day, frequent ambulation Remove dressing in 1 week. Observe wound and phone Orthopedics with any questions or concerns Return to clinic in 1 week for a wound check Return to clinic in 6 weeks with surgeon Minimize narcotic use. Wean off and discontinue soon as possible. Activities as tolerated. No strenuous activity. Outpatient physical therapy as scheduled at [facility]. Ice and elevate the operative extremity. No restriction on ice. Use CPAP machine at night. He had significant sleep apnea during surgery yesterday. Orthopedic medications will be sent to his pharmacy once the pharmacy is known.
[2023-04-07] MEDS: lisinopriL 20 MG TABLET PO (08:57)
[2023-04-07] MEDS: SENNOSIDES 1 TAB TABLET 2 TAB PO (08:58)
[2023-04-07] MEDS: hydroCHLOROthiazide 25 MG TABLET PO (08:58)
[2023-04-07] MEDS: FLUOXETINE HCL 20 MG CAPSULE PO (08:58)
[2023-04-07] MEDS: ATORVASTATIN 10 MG TABLET 20 MG PO (08:58)
--- NOTE | 2023-04-07 10:55 | PC.SOCIAL ---
Discharge planning: Met with pt regarding d/c plan. Pt states he was planning to go to a [facility] facility at discharge. Pt states he called Medicare and was told be has 20 days of coverage in a [facility] facility. Explained to pt the Medicare requirement for senior living coverage and that pt's current stay will not qualify for Medicare coverage of short term rehab stay. Discussed option of paying privately for senior living stay since it is not covered by Medicare. Pt states he is not able to pay privately for a rehab stay and does not want social media community manager to explore that option. Discussed pt's concerns about being discharged home. Pt states his main concern is that he has 14 stairs inside his home to get from one floor to another inside his home that he does not think he can do. canvas worker apprentice discussed option of pt discharging to stay with a friend who has a single level home. Pt states he did that after the last surgery but that where he stayed is not available at this time. Pt states he has another friend who has offered for him to stay with her but he would rather be in his own home. Pt is interested in discussing how long he will need to recover enough to do the stairs at home which could influence how long he would need to stay at a friend's house. Social work requested PT/OT discuss details of what recovery looks like for pt, so that he can make the best decision for himself for discharge. Pt states his friend will be picking him up for discharge today at about 2:00. Pt is hoping to return home at that time and would be willing to accept home care if ordered by physician and covered by insurance. canvas worker apprentice to follow up as needed.
[2023-04-07] MEDS: RIVAROXABAN 10 MG TABLET PO (11:14)
[2023-04-07 11:16] VITALS: BP 141/91; PULSE 94; RESP 16; TEMP 36.4; O2SAT 97
--- NOTE | 2023-04-07 11:36 | P.IMPN_ITS ---
Progress Note: A&P Assessment and plan (1) Status post left knee replacement: Problem details: - 04/06/2023, Dr. Quinones, [facility] - POD#1. Preoperative management including pain management per primary team, Orthopedic surgery - PT/OT, [place] assessment - secondary social studies teacher for discharge planning/placement needs. Patient has been informed he will need to private pay for short-term therapy and is otherwise unable to safely return home at this time as he lives alone in a 2 story [facility] with 14 stairs between. Apparently has told staff he does not want to ask for help from friends or family. Status: Acute Plan Medically stable for discharge. Awaiting safe discharge plan. Time Spent With Patient Total time spent: Total time spent caring for the patient today was 45 minutes. This includes time spent for the visit reviewing the chart, time spent during the visit, time spent after the visit and documentation and planning in coordination of care. Subjective Date Seen: 04/07/23 Interval history: Patient reports feeling pretty good this morning. Pain is adequately managed. No events reported overnight. We are following up with him again this morning as it has been brought to our attention that patient was not planning to discharge home but wanted placement in a TCU for short-term rehab following his surgery. Exam Narrative: Exam Narrative: PHYSICAL EXAM General: Very pleasant, conversant, NAD HEENT: Normocephalic, atraumatic, sclera white Cardiovascular: RRR Pulmonary: No dyspnea Neurological: Alert, answering questions appropriately Extremities: No gross joint deformity or swelling. Postoperative dressing in place, dry Skin: Exposed skin warm, dry. Const: Vital Signs, click to edit/add: Vital Signs - 24 hr 04/06/23 13:39 04/06/23 13:45 04/06/23 13:50 Temperature 96.9 F L Pulse Rate 72 75 71 Pulse Rate [Pulse Oximeter] Respiratory Rate 12 14 16 Blood Pressure 100/62 101/63 102/62 Blood Pressure [Ri ght Arm] Pulse Oximetry 93 94 95 Oxygen Delivery Me thod Room Air Oxygen Flow Rate 04/06/23 13:55 04/06/23 14:00 04/06/23 14:05 Temperature Pulse Rate 73 70 72 Pulse Rate [Pulse Oximeter] Respiratory Rate 14 16 14 Blood Pressure 102/64 104/63 102/66 Blood Pressure [Ri ght Arm] Pulse Oximetry 94 94 94 Oxygen Delivery Me thod Oxygen Flow Rate 04/06/23 14:10 04/06/23 14:21 04/06/23 14:30 Temperature 97.1 F L 96.8 F L 96.9 F L Pulse Rate 69 73 Pulse Rate [Pulse Oximeter] 73 Respiratory Rate 15 16 16 Blood Pressure 112/68 Blood Pressure [Ri ght Arm] 120/70 112/79 Pulse Oximetry 95 93 Oxygen Delivery Me thod Room Air Room Air Oxygen Flow Rate 04/06/23 14:45 04/06/23 15:00 04/06/23 15:15 Temperature 96.6 F L 96.8 F L 96.8 F L Pulse Rate Pulse Rate [Pulse Oximeter] 75 77 77 Respiratory Rate 16 16 16 Blood Pressure Blood Pressure [Ri ght Arm] 121/81 130/94 H 132/96 H Pulse Oximetry 96 94 94 Oxygen Delivery Me thod Room Air Room Air Room Air Oxygen Flow Rate 2 04/06/23 15:45 04/06/23 16:15 04/06/23 17:18 Temperature 97.6 F 96.9 F L 97.1 F L Pulse Rate Pulse Rate [Pulse Oximeter] 78 75 82 Respiratory Rate 16 16 16 Blood Pressure Blood Pressure [Ri ght Arm] 143/89 H 144/91 H 148/90 H Pulse Oximetry 95 95 97 Oxygen Delivery Me thod Room Air Room Air Room Air Oxygen Flow Rate 04/06/23 17:36 04/06/23 18:15 04/06/23 20:00 Temperature 96.5 F L 97.4 F L Pulse Rate Pulse Rate [Pulse Oximeter] 78 84 90 Respiratory Rate 16 16 Blood Pressure Blood Pressure [Ri ght Arm] 113/72 130/88 148/95 H Pulse Oximetry 96 97 Oxygen Delivery Me thod Room Air Room Air Oxygen Flow Rate 04/06/23 20:11 04/06/23 23:00 04/07/23 03:00 Temperature 97.8 F 96.9 F L Pulse Rate Pulse Rate [Pulse Oximeter] 90 92 81 Respiratory Rate 16 18 18 Blood Pressure Blood Pressure [Ri ght Arm] 130/82 140/79 H Pulse Oximetry 95 96 Oxygen Delivery Me thod Room Air Room Air Oxygen Flow Rate 04/07/23 07:36 04/07/23 07:36 04/07/23 11:16 Temperature 97.8 F 97.5 F L Pulse Rate Pulse Rate [Pulse Oximeter] 76 76 94 Respiratory Rate 14 14 16 Blood Pressure Blood Pressure [Ri t Arm] 145/75 H 141/91 H Pulse Oximetry 96 97 Oxygen Delivery Me thod Room Air Room Air Oxygen Flow Rate Labs Labs: Laboratory Results - last 24 hr 04/07/23 05:46 WBC 12.90 H RBC 4.33 Hgb 13.1 L Hct 38.7 MCV 89 MCH 30 MCHC 34 RDW Coeff of Ning 11.8 Plt Count 243 Neut % (Auto) 87.9 H Lymph % (Auto) 4.7 L [place] % (Auto) 7.1 Eos % (Auto) 0.0 Baso % (Auto) 0.1 Neut # (Auto) 11.30 H Lymph # (Auto) 0.60 L [place] # (Auto) 0.90 Eos # (Auto) 0.00 Baso # (Auto) 0.00 Abs Immat Gran (auto) 0.00 Imm/Tot Granulo (auto) 0.2 INR 1.10 Sodium 135 Potassium 4.4 BUN 29 Creatinine 0.9 Estimated Creat Clear 64.26 Estimated GFR 92
--- NOTE | 2023-04-07 14:09 | PC.NURSE ---
Discharge: Patient pleasant and cooperative. Patient vitally stable, lungs clear, BS WNL, IV removed, catheter intact. Patient 1 assist, walker, gb. Patient rates knee pain at most 5-6/10, scheduled tylenol given, and dilauded given once. Patient tolerating regular diet and urinating well. Patient left the floor by wheelchair at 1404 to home where friends who are transporting him will be with him. A couple hours later patient will be picked up from home to stay the weekend with another friend.
--- NOTE | 2023-04-09 16:42 | REH.OT ---
OT: An order for home safety eval was written when patient discharged and at that time he was planning to return to his own home alone. OT spoke with patient via phone on attempt since discharge to schedule home safety evaluation. Patient reports he did not return home at discharge, he went to a friend's home which is a one level home and plans to initiate OP PT at [facility] in [place] on Wednesday04/12/23. He plans to return to his own home next week and has asked for a follow up call next Wednesday04/14/23 to determine whether a home safety evaluation is still needed. OT will contact patient 04/14/23 as requested.
--- NOTE | 2023-04-15 14:23 | REH.OT ---
OT: 2 additional calls made to patient this week as requested. Spoke directly with patient today. He reports he returned to his own home and is managing well, he denies need for home safety eval since he discharged to a friend's home and had additional time to recuperate. The patient reports he has had 2OP PT sessions and MD appointment this week. Will not schedule home safety per patient declining need.
== END 2023-04-07 14:04 | disposition home or self-care (01) ==
LOC: OR 08:32 → MEDSURG 08:34
PROVIDERS: PCP Physician Assistant; Visit Provider Orthopaedic Surgery
PROC: (CPT 27447; principal; 2023-04-06 11:00)
DX: M17.12 Unilateral primary osteoarthritis, left knee (principal); G89.18 Other acute postprocedural pain; I10 Essential (primary) hypertension; Z86.711 Personal history of pulmonary embolism; E66.9 Obesity, unspecified; Z68.38 Body mass index [BMI] 38.0-38.9, adult; Z79.01 Long term (current) use of anticoagulants
CPT/HCPCS: 27447; 01402; 36415; 64447; 64454; 73560; 76942; 82565; 84132; 84295; 84520; 85025; 85610; 97110; 97116; 97162; 97166; 97530; 97535; 99100; A9270; C1776; J0665; J0690; J1100; J2250; J2371; J2405; J2704; J3010; J7120